=== PATIENT | female | born 1980 | race Caucasian/White ===

== ENCOUNTER → 2023-08-05 07:45 | Outpatient (CLI) | payer OTHER, SELFPAY ==
--- NOTE | ~2023-08-05 | US_ITS ---
EXAMINATION: US pelvic complete DATE: 08/05/2023 08:13 INDICATION: Abnormal uterine bleeding Comparison:No prior studies for comparison. TECHNIQUE: Multiple transabdominal and endovaginal sonographic images of the pelvis performed. FINDINGS: The uterus measures 8.4 x 4.6 x 5.9 cm. The endometrial complex measures 8 mm. The right ovary measures 3.5 x 2.4 x 3.2 cm and the left ovary measures 2.8 x 1.5 x 2.5 cm. There ar e small follicles in each ovary. Normal doppler signal in both ovaries. There is a simple cyst of the right ovary measuring 2.7 x 2.1 x 1.4 cm There is no free fluid in the pelvis. There are no abnormal masses seen on either side. IMPRESSION: 1. Simple right ovarian cyst measuring 2.7 cm. Reviewed, dictated and finalized at location A.
== END ==
PROVIDERS: PCP Obstetrics & Gynecology Gynecology; Visit Provider Obstetrics & Gynecology Gynecology
DX: N93.8 Other specified abnormal uterine and vaginal bleeding (principal); N83.201 Unspecified ovarian cyst, right side
CPT/HCPCS: 76856

== ENCOUNTER 2023-11-28 00:03 | Day surgery (SDC) | payer OTHER, SELFPAY ==
[2023-11-16 16:35] VITALS: BMI 21.7
--- NOTE | 2023-11-16 16:41 | SUR.PREOP ---
Report to the Outpatient Waiting Room, entrance under the green pavilion located off [facility], at time 0915 on date 11/28/23. Planned Procedure Time: 1115 . Time changes happen often and if your time is changed the preop area will call you the afternoon before. - You and your visitor will be asked to self-screen and do not enter if you have any COVID symptoms. - A mask is optional within the hospital at this time. Patients may have clear liquids (water, carbonated beverages, clear teas, apple juice) until 3 hours prior to surgery with a maximum of 20 ounces. - No food from midnight until time of surgery 20 ounces of clear liquid before 0815 am - Infants may have breast milk until 4 hours before surgery, formula 6 hours prior to surgery. - Children will be allowed to drink immediately following surgery. If applicable, please bring a bottle or sippy cup to assist with drinking. Juice, water, soda, and popsicles are readily available. For infants on formula, please bring formula the day of surgery. Pacifiers are allowed. Take the following medications with a SIP of water the morning of surgery: na DO NOT STOP ANY OF YOUR OTHER PRESCRIPTION MEDICATIONS PRIOR TO SURGERY ?EXCEPT THE FOLLOWING Medications to discontinue per physician ___hold multivitamins and supplements 3 days prior Date to take last dose Please no make-up, nail icelandic, hairspray, perfume, deodorant, or body powder the day of surgery. No jewelry (including any body piercings) or valuables the day of surgery, leave them at home. Please take a shower or bath the night before, or the morning of, surgery with an antibacterial soap. Wear comfortable, loose fitting clothing. Children are encouraged to wear pajamas. - Jewelry must be removed prior to entering the operating room. Rings and piercings that are not removed may be cut off. - The hospital will not accept responsibility for valuables. - Please leave all valuables, including medications, at home the day of surgery. If you are going home after surgery, a licensed class c truck driver must drive you home. - NO public transportation without another adult if you receive anesthesia. - We recommend that an adult stay with you for 24 hours following discharge. - We also recommend that you do not drive, make important decision, drink alcoholic beverages, or take any drugs that were not prescribed by your health care provider for at least 24 hours after your discharge time. For Pediatric surgeries, we recommend two adults accompany the child home. Follow any additional instructions given to you from your surgeon. If you or anyone in your household have experienced Covid symptoms in the past week, please notify your surgeon or the nurse liaison at the phone number below for possible testing. Telephone instructions given to __patient__and asked if any additional questions and then verbalized understanding. Patient advised to call surgeon office or pre surgery nurse liaison [phone] if any additional questions.
--- NOTE | 2023-11-28 08:10 | WPDANESEPPF ---
Anes - Initial Pre Proc Eval Procedure: Operation Date: 11/28/23 10:30 Proposed Procedures p Hysteroscopy Dilation and Curettage - Dee Taylor MD Date/Time: 11/28/23 08:10 Surgeon: Dee Taylor MD Pre Op Diagnosis: menorrhagia Patient Data Age: 43 Gender: F Height: 1.68 m Weight: 61.24 kg Allergies Allergy/AdvReac Type Severity Reaction Status Date / Time No Known Allergies Allergy Mild Verified 11/28/23 09:38 Home Medications Medication Instructions Recorded Confirmed Type multivitamin 1 tablet PO DAILY 11/16/23 11/16/23 History Patient hx anesthesia problems: none Family hx anesthesia problems: none Results Review: All pre-operative results and documents have been reviewed as part of the pre-operative evaluation. [facility] Past Medical History Medical History (Updated 11/28/23 @ 08:27 by Dee Taylor MD) Anxiety Surgical History Surgical History (Updated 11/28/23 @ 08:26 by Dee Taylor MD) History of section, low transverse x2 History of hysteroscopy 2009 benign findings Social History Social History Smoking status: Never smoker Alcohol use details: occasionally Living arrangements: with family Spiritual care concerns: No Anes - Eval Final PreProcedure Day of Procedure 11/28/23 08:10 Patient weight: normal Heart: regular rate and rhythm Lungs: clear to auscultation and normal air movement Airway: Mallampati scale class II Neurological: alert and oriented Last oral intake: >/= 8 hours ASA classification: I Emergent: no Anesthetic plan: proceed Anesthesia type and monitoring: general GIVS and standard monitoring Results Review: All pre-operative results and documents have been reviewed as part of the pre-operative evaluation. Informed Consent: The patient's anesthetic plan and its attendant risks and benefits were discussed with the patient/family/POA. Questions were solicited and answers provided to the satisfaction of the patient/family/POA.
--- NOTE | 2023-11-28 08:23 | P.HP_ITS ---
History of Present Illness History of Present Illness Consent: Risks, benefits, and alternatives have been discussed and questions answered. Patient agrees to proceed with procedure. Chief complaint: menorrhagia Narrative: Patrice Redman is a 43 year old female with a change in her cycles over the past year. Cycles have become very long lasting more than 2 weeks. Cycles have os open have year using a super tampon every hour for up to 3 to 4 days per cycle. Pelvic ultrasound is normal. It was recommended to undergo D&C hysteroscopy. Risks of infection, bleeding, perforation, and possible pathology are discussed. Patient voices understanding and agrees to proceed. Review of Systems Review of Systems: not repeated day of surgery; patient states no changes in status PMFSH Past Medical History Medical History (Updated 11/28/23 @ 08:27 by Dee Taylor MD) Anxiety Surgical History Surgical History (Updated 11/28/23 @ 08:26 by Dee Taylor MD) History of section, low transverse x2 History of hysteroscopy 2008 benign findings Social History Social History Smoking status: Never smoker Alcohol use details: occasionally Living arrangements: with family Spiritual care concerns: No Meds Home Medications and Allergies Home Medications Medication Instructions Recorded Confirmed Type multivitamin 1 tablet PO DAILY 11/16/23 11/16/23 History Allergies Allergy/AdvReac Type Severity Reaction Status Date / Time No Known Allergies Allergy Mild Unverified 07/30/10 07:52 Exam Const: General: healthy appearing and alert Orientation/consciousness: patient oriented x3 Resp: Effort & Inspection: normal respiratory effort : External Female Exam: normal external appearance Speculum Exam - Vagina: normal appearance of the vagina and normal vaginal discharge Speculum Exam - Cervix: normal appearance of the cervix Bimanual exam- vagina & uterus: uterine size normal and consistency normal Bimanual Exam- Adnexa, ot her: normal adnexae and No adnexal tenderness Neuro: General: patient oriented x3 Assessment and Plan Assessment and plan (1) Menorrhagia: Code(s): N92.0 - Excessive and frequent menstruation with regular cycle Status: Acute Assessment and Plan: plan to proceed with D&C hysteroscopy
--- NOTE | 2023-11-28 08:23 | WPDHPUPDATE1 ---
History and Physical Update Update Date/Time: 11/28/23 08:23 History and Physical has been reviewed, including an updated exam of the patient. There are NO changes in the patient's condition. Risks, benefits, and alternatives have been discussed and questions answered. Patient agrees to proceed with procedure.
[2023-11-28 09:10] VITALS: BP 106/71; PULSE 89; RESP 14; TEMP 37.1; O2SAT 100
[2023-11-28] MEDS: ACETAMINOPHEN 500 MG TABLET 1000 MG PO (09:10)
[2023-11-28] MEDS: LACTATED RINGERS 1,000 ML 30 ML IV CONT ×2 (09:10→11:20)
--- NOTE | 2023-11-28 10:45 | WPDANESEPP ---
Anes - Eval Pre Procedure Procedure: Operation Date: 11/28/23 10:30 Proposed Procedures p Hysteroscopy Dilation and Curettage - Dee Taylor MD Date/Time: 11/28/23 10:45 Pre Op Diagnosis: menorrhagia Patient Data Age: 43 Gender: F Height: 1.68 m Weight: 59.9 kg Last Vital Signs Temp 37.1 C 11/28/23 09:10 Pulse 89 11/28/23 09:10 Resp 14 11/28/23 09:10 BP 106/71 11/28/23 09:10 Pulse Ox 100 11/28/23 09:10 O2 Del Method Room Air 11/28/23 09:10 Allergies Allergy/AdvReac Type Severity Reaction Status Date / Time No Known Allergies Allergy Mild Verified 11/28/23 09:38 Home Medications Medication Instructions Recorded Confirmed Type multivitamin 1 tablet PO DAILY 11/16/23 11/16/23 History Patient hx anesthesia problems: none Family hx anesthesia problems: none Results Review: All pre-operative results and documents have been reviewed as part of the pre-operative evaluation. [facility] Past Medical History Medical History (Updated 11/28/23 @ 08:27 by Dee Taylor MD) Anxiety Surgical History Surgical History (Updated 11/28/23 @ 08:26 by Dee Taylor MD) History of section, low transverse x2 History of hysteroscopy 2009 benign findings Social History Social History Smoking status: Never smoker Alcohol use details: occasionally Living arrangements: with family Spiritual care concerns: No Exam Day of Procedure 11/28/23 10:45
[2023-11-28] MEDS: KETOROLAC 15 MG/ML VIAL (*BKC) IV PUSH (10:55)
[2023-11-28 11:20] VITALS: BP 82/28; PULSE 81; RESP 16; O2SAT 100
--- NOTE | 2023-11-28 11:21 | W.PM.PROC2 ---
Procedure Note - Detailed Date of Procedure 11/28/23 Pre-op Diagnosis menorrhagia Post-op Diagnosis Same Procedure Performed D&C hysteroscopy Surgeon Dee Taylor MD Anesthesia MAC Findings The uterus sounds to 9cm and appears grossly secretory. Anterior fundus shows secretory endometrium with a bulge into the endometrium suspicious for a lesion. Description of Procedure The patient is taken to the operating room and placed under anesthesia in the dorsal lithotomy position. She was prepped and draped in the usual sterile fashion. [place] speculum was placed in the vagina and the cervix grasped on the anterior lip with a tenaculum. The uterus is sounded to 9cm. The diagnostic hysteroscope was placed and with the above-stated findings the decision was made to resect the endometrium bulging into the cavity suspicious for fibroid. The Aveeta Flex is used to resect the area and it appears to only be secretory endometrium not a fibroid. Generalized biopsies were taken throughout the endometrium. The hysteroscope was removed. The sharp OO curette was used to curette the endometrium until a good uterine cry was noted in all areas. All instruments are removed. Sponge, needle, and instrument counts are correct per the OR staff. The patient was awakened from anesthesia and taken to recovery in stable condition. Estimated Blood Loss 5 Drains No Packing No Pathology Yes ( Endometrial shavings and curettings) Complications No immediate complications Condition Stable Disposition PACU
[2023-11-28 11:25] VITALS: BP 94/53
[2023-11-28 11:50] VITALS: BP 94/51; PULSE 75; RESP 20
[2023-11-28 12:10] VITALS: BP 93/53; PULSE 70; RESP 20
== END 2023-11-28 12:20 | disposition home or self-care (01) ==
PROVIDERS: PCP Family Medicine Sports Medicine; Visit Provider Obstetrics & Gynecology Gynecology
PROC: 0U5B8ZZ Destruction of Endometrium, Via Natural or Artificial Opening Endoscopic (ICD-10-PCS; CPT 58563; principal; 2023-11-28 10:30)
DX: N92.0 Excessive and frequent menstruation with regular cycle (principal)
CPT/HCPCS: 58558; 88305; A9270; J1100; J1885; J2250; J2405; J2704; J3010; J7120

== ENCOUNTER → 2023-12-19 15:32 | Outpatient (CLI) | payer OTHER, SELFPAY ==
--- NOTE | ~2023-12-19 | MM_ITS ---
EXAMINATION: MM screening rico BI w donna HISTORY: Screening mammogram TECHNIQUE: Craniocaudal and mediolateral oblique 3-D tomosynthesis images were obtained and synthetic 2-D images were generated. CAD analysis was submitted and interpreted. COMPARISON: No prior mammogram is available for comparison at this institution. BREAST PARENCHYMAL COMPOSITION: There are scattered areas of fibroglandular density. FINDINGS: Circumscribed 9 x 11 mm opacity in the upper central breast at 12:00. 5.4 x 8.4 mm circumscribed opacity at mid depth in the lower outer left breast. These are low density with circumscribed margins, suggesting likely benign process. Left breast ultr asound examination is recommended. Otherwise there is no evidence of suspicious mass, calcification, architectural distortion, skin thic kening or retraction to suggest malignancy in either breast. IMPRESSION: 1. Left breast low density circumscribed masses 2. Left breast ultrasound examination is recommended. BI-RADS Category 0: Incomplete: Needs additional imaging evaluation. Reviewed, dictated and finalized at location A. BUYER
== END ==
PROVIDERS: PCP Obstetrics & Gynecology Gynecology; Visit Provider Obstetrics & Gynecology Gynecology
DX: Z12.31 Encounter for screening mammogram for malignant neoplasm of breast (principal); R92.8 Other abnormal and inconclusive findings on diagnostic imaging of breast
CPT/HCPCS: 77063; 77067

== ENCOUNTER 2024-01-03 14:19 | Outpatient (CLI) | payer OTHER, SELFPAY ==
--- NOTE | ~2024-01-03 | MMUS_ITS ---
EXAMINATION: MM diagnostic rico LT w donna, US breast LT complete HISTORY: Follow-up left breast masses TECHNIQUE: Additional 3-D tomosynthesis images of the left breast were performed and synthetic 2-D im ages were generated. CAD analysis was submitted and interpreted. High resolution complete left breast ultrasound was performed. COMPARISON: 12/19/2023 BREAST PARENCHYMAL COMPOSITION: Not dense: There are scattered areas of fibroglandular density. FINDINGS: MAMMOGRAPHIC FINDINGS: There are masses located in the upper central aspect of the left breast and upper outer quadrant of t he left breast. There are no suspicious calcifications or architectural distortion. ULTRASOUND: Complete US of all 4 quadrants of the left breast and retroareolar region was reviewed. At 12:00, 2 c m from the nipple, there is a 1 cm simple cyst. At 2:00, 3 cm from the nipple there is a 7 mm simple cyst. At 10:00 near the areola there is a cluster of cysts, largest measuring 11 mm. No suspicious ma sses to suggest malignancy. IMPRESSION: 1. No evidence for malignancy in the left breast. Benign findings. 2. Routine yearly screening mammogram and regular clinical breast examination are recommended. BI-RADS Category 2: Benign finding(s). Reviewed, dictated and finalized at location A. IMPRESSION: 1. No evidence for malignancy in the left breast. Benign findings. 2. Routine yearly screening mammogram and regular clinical breast examination a re recommended. BI-RADS Category 2: Benign finding(s).
== END 2024-01-03 14:20 ==
LOC: MICIMG 14:20
PROVIDERS: PCP Obstetrics & Gynecology Gynecology; Visit Provider Obstetrics & Gynecology Gynecology
DX: R92.8 Other abnormal and inconclusive findings on diagnostic imaging of breast (principal)
CPT/HCPCS: 76641; 77061; 77065; G0279

== ENCOUNTER 2025-01-24 15:14 | Outpatient (CLI) | payer OTHER, SELFPAY ==
--- NOTE | ~2025-01-24 | MM_ITS ---
EXAMINATION: MM screening rico BI w donna HISTORY: Screening TECHNIQUE: Craniocaudal and mediolateral oblique 3-D tomosynthesis images were obtained and synthetic 2-D images were generated. CAD analysis was submitted and interpreted. COMPARISON: Comparison to multiple prior studies sequentially, with oldest reviewed study dated 11/2020. BREAST PARENCHYMAL COMPOSITION: Not dense: There are scattered areas of fibroglandular density. FINDINGS: There is no evidence of suspicious mass, calcification, or architectural distortion to sugg est malignancy in either breast. There has been no suspicious interval change. IMPRESSION: 1. No mammographic evidence of malignancy. 2. Recommend routine screening mammography in one year. BI-RADS Category 1: Negative Reviewed, dictated and finalized at location A.
== END 2025-01-24 15:15 | disposition home or self-care (01) ==
LOC: MICIMG 15:15
PROVIDERS: PCP Obstetrics & Gynecology Gynecology; Visit Provider Obstetrics & Gynecology Gynecology
DX: Z12.31 Encounter for screening mammogram for malignant neoplasm of breast (principal)
CPT/HCPCS: 77063; 77067